=== PATIENT | male | born 1980 | race Caucasian/White ===

== ENCOUNTER 2019-02-15 13:44 | Emergency (ER) | payer SELFPAY ==
[2019-02-15] MEDS ORDERED: NORMAL SALINE 1000 ML 1,000 ML IV ONE (15:40)
[2019-02-15] MEDS ORDERED: ACETAMINOPHEN 325 MG TABLET PO ONE (15:40)
--- NOTE | 2019-02-15 15:42 | ER Document Report ---
ED Medical Screen (RME) - General Chief Complaint: Headache Stated Complaint: DIZZY,HEADACHE,SORE THROAT Time Seen by Provider: 02/15/19 15:31 Mode of Arrival: Ambulatory TRAVEL OUTSIDE OF THE [place] IN LAST 30 DAYS: No - HPI Patient complains to provider of: H/A, DIZZINESS Notes: 02/15/19 15:41 Patient here with complaints of headache and dizziness. The patient states that he works outside. He was working in a [employer] shirt yesterday. States that he feels very dehydrated complains of having a headache, generalized muscle ache and joint aches as well as feeling generally dizzy. He thinks he may have passed out this morning. No chest pain or shortness of breath. No recent long trips or surgeries, leg swelling, cancer, history of DVT or PE. Exam No distress, nontoxic-appearing. Mild tachycardia. Lungs clear and equal throughout. Nonfocal neuro exam. Plan CBC, CMP, CPK, troponin, EKG, chest x-ray, saline lock, Tylenol, normal saline bolus. An initial examination was made on the patient as part of the triage process, and it was determined a more comprehensive evaluation was necessary. Initial labs were ordered and patient was transferred to another provider in the ED who assumed care and finished evaluation and plan. - Related Data Allergies/Adverse Reactions: No Known Allergies Allergy (Verified 02/15/19 13:45) Past Medical History Renal/ Medical History: Denies: Hx Peritoneal Dialysis GI Medical History: Reports: Hx Gastroesophageal Reflux Disease Psychiatric Medical History: Reports: Hx Anxiety Past Surgical History: Reports: Hx Appendectomy - Immunizations Hx Diphtheria, Pertussis, Tetanus Vaccination: No Physical Exam - Vital signs Vitals: Temp Pulse BP Pulse Ox 99.5 F 108 H 98/50 L 95 02/15/19 14:01 02/15/19 14:01 02/15/19 14:01 02/15/19 14:01 Course - Vital Signs Vital signs: Temp Pulse Resp BP Pulse Ox 99.5 F 108 H 98/50 L 95 02/15/19 14:01 02/15/19 14:01 02/15/19 14:01 02/15/19 14:01
--- NOTE | 2019-02-15 17:13 | RADIOLOGY REPORT (SQ) ---
EXAM DESCRIPTION: CHEST SINGLE VIEW COMPLETED DATE/TIME: 02/15/2019 5:06 pm REASON FOR STUDY: DIZZINESS COMPARISON: 10/22/2015 EXAM PARAMETERS: NUMBER OF VIEWS: One view. TECHNIQUE: Single frontal radiographic view of the chest acquired. RADIATION DOSE: NA LIMITATIONS: None. FINDINGS: LUNGS AND PLEURA: No opacities, masses or pneumothorax. No pleural effusion. MEDIASTINUM AND HILAR STRUCTURES: No masses. Contour normal. HEART AND VASCULAR STRUCTURES: Heart normal in size. Normal vasculature. BONES: No acute findings. HARDWARE: None in the chest. OTHER: No other significant finding. IMPRESSION: NO ACUTE RADIOGRAPHIC FINDING IN THE CHEST. TECHNICAL DOCUMENTATION: JOB ID: [id number] [employer]- All Rights Reserved Reading location - IP/workstation name: [email or web address]
[2019-02-15 17:20] LABS: ABSOLUTE BASOPHILS # (AUTO) 0.1 10^3/uL (0.0-0.2); ABSOLUTE LYMPHOCYTES (AUTO) 1.3 10^3/uL (0.5-4.7); ABSOLUTE NEUT (AUTO) 16.4 10^3/uL (1.7-8.2); BASOPHILS % (AUTO) 0.3 % (0-2); EOSINOPHILS % (AUTO) 0.2 % (0-6); HEMATOCRIT 44.4 % (37.9-51.0); HEMOGLOBIN 15.1 g/dL (13.5-17.0); MEAN CORPUSCULAR HEMOGLOBIN 31.4 pg (27.0-33.4); MEAN CORPUSCULAR HGB CONC 34.1 g/dL (32.0-36.0); MEAN CORPUSCULAR VOLUME 92 fl (80-97); MONOCYTES % (AUTO) 5.2 % (3-13); PLATELET COUNT 319 10^3/uL (150-450); RED BLOOD COUNT 4.82 10^6/uL (4.35-5.55); RED CELL DISTRIBUTION WIDTH 13.2 % (11.5-14.0); SEGMENTED NEUTROPHILS % (AUTO) 87.3 % (42-78); TOTAL CELLS COUNTED % (AUTO) 100 %; WHITE BLOOD COUNT 18.8 10^3/uL (4.0-10.5)
[2019-02-15 17:39] LABS: ALANINE AMINOTRANSFERASE 25 U/L (21-72); ALBUMIN 4.1 g/dL (3.5-5.0); ALKALINE PHOSPHATASE 116 U/L (38-126); ANION GAP 13 (5-19); ASPARTATE AMINO TRANSFERASE 20 U/L (17-59); BILIRUBIN,DIRECT 0.3 mg/dL (0.0-0.4); BILIRUBIN,TOTAL 0.8 mg/dL (0.2-1.3); BLOOD UREA NITROGEN 10 mg/dL (7-20); CALCIUM 9.4 mg/dL (8.4-10.2); CARBON DIOXIDE 25 mmol/L (22-30); CHLORIDE 100 mmol/L (98-107); CREATINE KINASE 53 U/L (55-170); GLUCOSE 98 mg/dL (75-110); POTASSIUM 4.1 mmol/L (3.6-5.0); SODIUM 137.6 mmol/L (137-145); TOTAL PROTEIN 7.4 g/dL (6.3-8.2)
[2019-02-15] MEDS ORDERED: KETOROLAC TROMETHAMINE INJ/PF 30 MG/1 ML SDV IV ONE (20:28)
--- NOTE | 2019-02-15 20:39 | ER Document Report ---
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 Patient states suddenly he became very hot, began sweating and felt like he was going to pass out. Patient states that he began feeling pain in his throat today. He denies any fever, difficulty swallowing, ear pain, chest pain, shortness of breath, abdominal pain. Patient does smoke and drink. TRAVEL OUTSIDE OF THE [place] IN LAST 30 DAYS: No - HPI Onset: This morning Onset/Duration: Gradual, Better Quality of pain: Achy Severity: Mild Pain Level: 1 Associated symptoms: Body/muscle aches, Chills, Nonproductive cough - Chronic, Headache - Resolved, Nausea, Sore throat, Other - Dizziness-resolved. denies: Chest pain, Diarrhea, Fever, Vomiting, Shortness of breath Exacerbated by: Denies Relieved by: Denies Similar symptoms previously: No Recently seen / treated by doctor: No - Related Data Allergies/Adverse Reactions: No Known Allergies Allergy (Verified 02/15/19 13:45) Past Medical History - General Information source: Patient - Social History Smoking Status: Current Every Day Smoker Cigarette use (# per day): Yes - 15 Smoking Education Provided: Yes - Smoking cessation counseling was provided for 4 minutes at the bedside Frequency of alcohol use: Occasional Drug Abuse: None Lives with: Spouse/Significant other Family History: Reviewed & Not Pertinent Patient has suicidal ideation: No Patient has homicidal ideation: No - Medical History Medical History: Negative Renal/ Medical History: Denies: Hx Peritoneal Dialysis GI Medical History: Reports: Hx Gastroesophageal Reflux Disease Psychiatric Medical History: Reports: Hx Anxiety Past Surgical History: Reports: Hx Appendectomy - Immunizations Hx Diphtheria, Pertussis, Tetanus Vaccination: No Review of Systems - Review of Systems Notes: REVIEW OF SYSTEMS: CONSTITUTIONAL : Denies fever, chills, or sweats. Denies recent illness. Denies weight loss, recent hospitalizations. EENT: Denies visual changes, eye pain. Denies oral lesions, difficulty swallowing. CARDIOVASCULAR: Denies chest pain. Denies palpitations. Denies lower extremity edema. RESPIRATORY: Denies cough. Denies shortness of breath, wheezing. GASTROINTESTINAL: Denies abdominal pain or distention. Denies vomiting, or diarrhea. Denies blood in vomitus, stools, or per rectum. Denies black, tarry stools. Denies constipation. GENITOURINARY: Denies difficulty urinating, painful urination, frequency, blood in urine, testicular pain or penile discharge. MUSCULOSKELETAL: Denies back or neck pain or stiffness. Denies joint pain or swelling. SKIN: Denies rash, lesions or sores. HEMATOLOGIC : Denies easy bruising or bleeding. LYMPHATIC: Denies swollen glands. NEUROLOGICAL: Denies confusion or altered mental status. Denies loss of consciousness. Denies weakness or paralysis. Denies problems difficulty with ambulation, slurred speech. Denies sensory loss, numbness, or tingling. Denies seizures. PSYCHIATRIC: Denies anxiety or stress. Denies depression, suicidal ideation, or Physical Exam - Vital signs Vitals: Temp Pulse BP Pulse Ox 99.5 F 108 H 98/50 L 95 02/15/19 14:01 02/15/19 14:01 02/15/19 14:01 02/15/19 14:01 - Notes Notes: PHYSICAL EXAMINATION: GENERAL: Well-appearing, well-nourished and in no acute distress. HEAD: Atraumatic, normocephalic. EYES: Pupils equal round and reactive to light, extraocular movements intact, sclera anicteric, conjunctiva are normal. ENT: Nares patent, oropharynx erythematous, 2+ tonsillar swelling, no exudates. Moist mucous membranes. NECK: Normal range of motion, supple without lymphadenopathy LUNGS: Breath sounds clear to auscultation bilaterally and equal. No wheezes rales or rhonchi. HEART: Regular rate and rhythm without murmurs ABDOMEN: Soft, nontender, nondistended abdomen. No guarding, no rebound. No masses appreciated. Musculoskeletal: Normal range of motion, no pitting or edema. No cyanosis. NEUROLOGICAL: Cranial nerves grossly intact. Normal speech, normal gait. Normal sensory, motor exams PSYCH: Normal mood, normal affect. SKIN: Warm, Dry, normal turgor, no rashes or lesions noted. Course - Re-evaluation Re-evalutation: 02/16/19 02:19 Laboratory 02/15/19 02/15/19 02/15/19 16:50 16:50 16:50 WBC 18.8 H RBC 4.82 Hgb 15.1 Hct 44.4 MCV 92 MCH 31.4 MCHC 34.1 RDW 13.2 Plt Count 319 Seg Neutrophils % 87.3 H Lymphocytes % 7.0 L Monocytes % 5.2 Eosinophils % 0.2 Basophils % 0.3 Absolute Neutrophils 16.4 H Absolute Lymphocytes 1.3 Absolute Monocytes 1.0 Absolute Eosinophils 0.0 Absolute Basophils 0.1 Sodium 137.6 Potassium 4.1 Chloride 100 Carbon Dioxide 25 Anion Gap 13 BUN 10 Creatinine 0.68 Est GFR ( Amer) > 60 Est GFR (Non-Af Amer) > 60 Glucose 98 Calcium 9.4 Total Bilirubin 0.8 Direct Bilirubin 0.3 Neonat Total Bilirubin Not Reportable Neonat Direct Bilirubin Not Reportable Neonat Indirect Bili Not Reportable AST 20 ALT 25 Alkaline Phosphatase 116 Creatine Kinase 53 L Troponin I < 0.012 Total Protein 7.4 Albumin 4.1 Monotest Group A Strep Rapid 02/15/19 02/15/19 21:15 21:15 WBC RBC Hgb Hct MCV MCH MCHC RDW Plt Count Seg Neutrophils % Lymphocytes % Monocytes % Eosinophils % Basophils % Absolute Neutrophils Absolute Lymphocytes Absolute Monocytes Absolute Eosinophils Absolute Basophils Sodium Potassium Chloride Carbon Dioxide Anion Gap BUN Creatinine Est GFR ( Amer) Est GFR (Non-Af Amer) Glucose Calcium Total Bilirubin Direct Bilirubin Neonat Total Bilirubin Neonat Direct Bilirubin Neonat Indirect Bili AST ALT Alkaline Phosphatase Creatine Kinase Troponin I Total Protein Albumin Monotest NEGATIVE Group A Strep Rapid POSITIVE Chest X-Ray 02/15/19 15:42 IMPRESSION: NO ACUTE RADIOGRAPHIC FINDING IN THE CHEST. 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 Patient states suddenly he became very hot, began sweating and felt like he was going to pass out. Patient states that he began feeling pain in his throat today. Patient was placed on traffic monitor specialist and EKG was obtained which showed the patient to be in normal sinus rhythm. CBC does show a leukocytosis without anemia. CMP is without electrolyte abnormalities. Troponin within normal limits. Group A strep positive. Patient received IV fluids, Zofran, pen G IM. Patient reports resolution of his nausea, headache and dizziness. Patient was evaluated and treated as appropriate for the patient's presenting symptoms and complaint, with consideration of any critical or life threatening conditions that may be associated with their obtained history and exam as noted above. All results were discussed with patient. Patient provided the opportunity to ask questions, and express concerns. Patient was educated on treatments based on their presumed diagnosis as noted above. At this time we will discharge the patient with return precautions and follow-up recommendations. Verbal discharge instructions given a the bedside. Medication warnings reviewed. Patient is in agreement with this plan and has verbalized understanding of return precautions. After careful consideration I feel that that patient can be safely discharged from the emergency department, they were advised to followup with a primary care physician in 2-3 days. Dictation on this chart was performed using voice recognition software and may result in unintended grammatical, spelling, syntax or errors. - Vital Signs Vital signs: Temp Pulse Resp BP Pulse Ox 98.6 F 92 20 100/60 95 02/15/19 22:00 02/15/19 18:48 02/15/19 22:01 02/15/19 22:01 02/15/19 22:01 - Laboratory Result Diagrams: 02/15/19 16:50 02/15/19 16:50 Laboratory results interpreted by me: 02/15/19 02/15/19 16:50 16:50 WBC 18.8 H Seg Neutrophils % 87.3 H Lymphocytes % 7.0 L Absolute Neutrophils 16.4 H Creatine Kinase 53 L - Diagnostic Test Radiology reviewed: Image reviewed, Reports reviewed - EKG Interpretation by Nc EKG shows normal: Sinus rhythm Rate: Normal Rhythm: NSR Discharge - Discharge Clinical Impression: Strep pharyngitis, Dizziness Headache Qualifiers: Headache type: unspecified Headache chronicity pattern: unspecified pattern Intractability: not intractable Qualified Code(s): R51 - Headache Condition: Good Disposition: HOME, SELF-CARE Instructions: Dizziness ([facility]), Headache ([facility]), Strep Throat ([facility]) Additional Instructions: Follow up with your [id number] hours for further care or return to the ED IMMEDIATELY if symptoms worsen or you have any concerns. If you cannot afford to follow up with your primary care physician a list of low cost clinics have been provided at the end of your discharge papers as well. Most prescribed medications have multiple side effects. The safest thing to do is when filling your prescription speak to your pharmacist regarding possible interactions with your normal home medications and over the counter medications such as Ibuprofen, Tylenol, Benadryl. If you experience any symptoms that cause you discomfort or concern you should discontinue the medication immediately and return to the emergency room or call your primary care physician. Prescriptions: Ibuprofen [Motrin 600 Mg Tablet] 600 mg PO TID #15 tablet Ondansetron [Zofran Odt 4 mg Tablet] 1 - 2 tab PO Q4H PRN #15 tab.rapdis PRN Reason: For Nausea/Vomiting
[2019-02-15] MEDS ORDERED: PENICILLIN G BENZATHINE 1.2 MILLION UNIT/2 ML DISP.SYRIN IM ONE (21:45)
[2019-02-15 22:20] VITALS: BP 100/60
--- NOTE | 2019-02-15 23:41 | EKG REPORT ---
SEVERITY:- NORMAL ECG - SINUS RHYTHM : Confirmed by: Fabio Ramos 15-Feb-2019 23:41:00
== END 2019-02-15 22:30 | disposition home or self-care (01) ==
LOC: ER 13:44
DX: J02.0 Streptococcal pharyngitis (principal); R42 Dizziness and giddiness; R51 Headache; J02.9 Acute pharyngitis, unspecified; M79.10 Myalgia, unspecified site; R05 Cough; F17.210 Nicotine dependence, cigarettes, uncomplicated
CPT/HCPCS: 93005; 99406; 99284; 96372; 96361; 96374; 36415; 87880; 82550; 85025; 86308; 80053; 84484; 71045; 93010; J1885; J0561; J7030

== ENCOUNTER 2020-08-01 14:48 | Emergency (ER) | payer SELFPAY ==
--- NOTE | 2020-08-01 16:10 | ER Document Report ---
ED Medical Screen (RME) - General Chief Complaint: Chest Pain Stated Complaint: CHEST PAIN, LEG NUMBNESS Time Seen by Provider: 08/01/20 16:03 Mode of Arrival: Wheelchair Information source: Patient Notes: 40-year-old man presented to ED for complaint of chest pain since 10 AM. He states the pain was so bad he had to lay down on the concrete at work and then when he to get up he cannot feel his legs and had to be helped up from the ground. He states his friend did bring him in and he was able to walk to the truck with a lot of assistance. He states his legs still feel numb. He states his pain is still stabbing. He states he does smoke 15 cigarettes a day. He states he does not have any past medical history. His blood pressure is low for what he states is his normal and his pulse is tachycardic. I did consult Dr. Abarca. She agreed patient needed CTA right away. Labs and CTA have been ordered. I have greeted and performed a rapid initial assessment of this patient. A comprehensive ED assessment and evaluation of the patient, analysis of test results and completion of medical decision making process will be conducted by an additional ED providers. TRAVEL OUTSIDE OF THE [place] IN LAST 30 DAYS: No - Related Data Allergies/Adverse Reactions: No Known Allergies Allergy (Verified 08/01/20 16:02) Past Medical History - General Information source: Patient - Social History Cigarette use (# per day): Yes - 15 cigarettes a day Frequency of alcohol use: None Drug Abuse: None Lives with: Alone Family history: Reviewed & Not Pertinent - Medical History Medical History: Negative - Past Medical History Cardiac Medical History: Reports: None Pulmonary Medical History: Reports: None EENT Medical History: Reports: None Neurological Medical History: Reports: None Endocrine Medical History: Reports: None Renal/ Medical History: Reports: None Malignancy Medical History: Reports None GI Medical History: Reports: Hx Gastroesophageal Reflux Disease Musculoskeltal Medical History: Reports None Skin Medical History: Reports None Psychiatric Medical History: Reports: Hx Anxiety Traumatic Medical History: Reports: None Infectious Medical History: Reports: None Past Surgical History: Reports: Hx Appendectomy - Immunizations Hx Diphtheria, Pertussis, Tetanus Vaccination: No Physical Exam - Vital signs Vitals: Temp Pulse Resp BP Pulse Ox 97.1 F 100 20 106/55 L 97 08/01/20 15:03 08/01/20 15:03 08/01/20 15:03 08/01/20 15:03 08/01/20 15:03 Course - Vital Signs Vital signs: Temp Pulse Resp BP Pulse Ox 97.1 F 100 20 106/55 L 97 08/01/20 15:03 08/01/20 15:03 08/01/20 15:03 08/01/20 15:03 08/01/20 15:03
[2020-08-01 16:34] LABS: ABSOLUTE LYMPHOCYTES (AUTO) 1.1 10^3/uL (0.5-4.7); ABSOLUTE MONOCYTES (AUTO) 0.6 10^3/uL (0.1-1.4); ABSOLUTE NEUT (AUTO) 6.6 10^3/uL (1.7-8.2); BASOPHILS % (AUTO) 0.5 % (0-2); EOSINOPHILS % (AUTO) 0.5 % (0-6); HEMATOCRIT 43.4 % (37.9-51.0); HEMOGLOBIN 15.6 g/dL (13.5-17.0); LYMPHOCYTES % (AUTO) 13.6 % (13-45); MEAN CORPUSCULAR HEMOGLOBIN 32.8 pg (27.0-33.4); MEAN CORPUSCULAR HGB CONC 35.8 g/dL (32.0-36.0); MEAN CORPUSCULAR VOLUME 92 fl (80-97); MONOCYTES % (AUTO) 6.8 % (3-13); PLATELET COUNT 291 10^3/uL (150-450); RED BLOOD COUNT 4.75 10^6/uL (4.35-5.55); RED CELL DISTRIBUTION WIDTH 13.2 % (11.5-14.0); SEGMENTED NEUTROPHILS % (AUTO) 78.6 % (42-78); TOTAL CELLS COUNTED % (AUTO) 100 %; WHITE BLOOD COUNT 8.4 10^3/uL (4.0-10.5)
--- NOTE | 2020-08-01 16:54 | RADIOLOGY REPORT (SQ) ---
EXAM DESCRIPTION: CTA CHEST IMAGES COMPLETED DATE/TIME: 08/01/2020 4:33 pm REASON FOR STUDY: chest pain numbness to both legs COMPARISON: 10/22/2015 TECHNIQUE: CT scan of the chest performed using helical scanning technique with dynamic intravenous contrast injection. Images reviewed with lung, soft tissue and bone windows. Reconstructed coronal and sagittal MPR images reviewed. Additional 3 dimensional post-processing performed to develop Maximal Intensity Projection images (VT P). All images stored on PACS. All CT scanners at this facility use dose modulation, iterative reconstruction, and/or weight based d osing when appropriate to reduce radiation dose to as low as reasonably achievable (ALARA). [facility]: Dose Right [facility]: CareDose [facility]: Dose Right [facility]: Teradose 4D [facility]: Funzio CONTRAST TYPE AND DOSE: contrast/concentration: Isovue 350.00 mmol/ml; Total Contrast Delivered: 57. 0 ml; Total Saline Delivered: 52.7 ml Contrast bolus not optimized for the pulmonary arteries. RENAL FUNCTION: None required. The patient is less than 50 years old. RADIATION DOSE: CT Rad equipment meets quality standard of care and radiation dose reduction techniq ues were employed. CTDIvol: 14.4 - 19.8 mGy. DLP: 569 mGy-cm. . LIMITATIONS: None. FINDINGS: LUNGS AND PLEURA: No masses, infiltrates, or pneumothorax. No pleural effusions or pleura l calcifications. AORTA AND GREAT VESSELS: No aneurysm. No dissection. HEART: No pericardial effusion. No significant coronary artery calcifications. PULMONARY ARTERIES: Pulmonary arteries are poorly opacified. No obvious central pulmonary emboli. HILAR AND MEDIASTINAL STRUCTURES: No identified masses or abnormal nodes. HARDWARE: None in the chest. UPPER ABDOMEN: No significant findings. Limited exam. THYROID AND OTHER SOFT TISSUES: No masses. No adenopathy. BONES: No acute or significant finding. 3D MIPS: Confirm above findings. OTHER: No other significant finding. IMPRESSION: There is no aortic aneurysm or dissection. No acute findings in the thorax. COMMENT: Quality ID # [id number]: Final reports with documentation of one or more dose reduction techniques (e.g., Automated exposure control, adjustment of the mA and/or kV according to patient size, use of iterative reconstruction technique) TECHNICAL DOCUMENTATION: JOB ID: [id number] [employer]- All Rights Reserved Reading location - IP/workstation name: [email or web address]
[2020-08-01 17:01] LABS: ALBUMIN 4.3 g/dL (3.5-5.0); ALKALINE PHOSPHATASE 109 U/L (38-126); ANION GAP 11 (5-19); ASPARTATE AMINO TRANSFERASE 28 U/L (17-59); BILIRUBIN,DIRECT 0.1 mg/dL (0.0-0.4); BILIRUBIN,TOTAL 0.6 mg/dL (0.2-1.3); BLOOD UREA NITROGEN 10 mg/dL (7-20); CALCIUM 9.2 mg/dL (8.4-10.2); CARBON DIOXIDE 22 mmol/L (22-30); CHLORIDE 99 mmol/L (98-107); CREATINE KINASE 116 U/L (55-170); GLUCOSE 97 mg/dL (75-110); POTASSIUM 3.8 mmol/L (3.6-5.0); TOTAL PROTEIN 7.5 g/dL (6.3-8.2)
[2020-08-01] MEDS ORDERED: KETOROLAC TROMETHAMINE INJ/PF 30 MG/1 ML SDV IV ONE (20:42)
[2020-08-01] MEDS ORDERED: NORMAL SALINE 1000 ML 1,000 ML IV ONE (20:42)
--- NOTE | 2020-08-01 20:48 | ER Document Report ---
ED General - General Chief Complaint: Chest Pain Stated Complaint: CHEST PAIN, LEG NUMBNESS Time Seen by Provider: 08/01/20 16:03 Mode of Arrival: Wheelchair TRAVEL OUTSIDE OF THE [place] IN LAST 30 DAYS: No - HPI Notes: Patient is a 40-year-old male who presents to emergency department for evaluation of chest pain with radiation into his neck and back. He states he woke up this morning he felt very hot all over, possibly fevered. He states he took his temperature and he had no fever. He went to work. He had intermittent chills. He started having chest pain that he describes a sharp and stabbing. It is in his center chest, radiates occasionally into his back and into his neck. He states that his legs "felt numb." He lay down flat because his pain was so severe. He just feels weak all over. He states that his legs do not feel exactly numb right now, but they just "do not feel right." He has had some recent diarrhea. - Related Data Allergies/Adverse Reactions: No Known Allergies Allergy (Verified 08/01/20 16:02) Past Medical History - General Information source: Patient - Social History Smoking Status: Current Every Day Smoker Cigarette use (# per day): Yes - 15 cigarettes a day Chew tobacco use (# tins/day): No Frequency of alcohol use: None Drug Abuse: None Lives with: Alone Family History: Reviewed & Not Pertinent - Medical History Medical History: Negative - Past Medical History Cardiac Medical History: Reports: None Pulmonary Medical History: Reports: None EENT Medical History: Reports: None Neurological Medical History: Reports: None Endocrine Medical History: Reports: None Renal/ Medical History: Reports: None Malignancy Medical History: Reports None GI Medical History: Reports: Hx Gastroesophageal Reflux Disease Musculoskeletal Medical History: Reports None Skin Medical History: Reports None Psychiatric Medical History: Reports: Hx Anxiety Traumatic Medical History: Reports: None Infectious Medical History: Reports: None Past Surgical History: Reports: Hx Appendectomy - Immunizations Hx Diphtheria, Pertussis, Tetanus Vaccination: No Review of Systems - Review of Systems Constitutional: See HPI EENT: No symptoms reported Cardiovascular: See HPI Respiratory: No symptoms reported Gastrointestinal: No symptoms reported Genitourinary: No symptoms reported Musculoskeletal: See HPI Skin: No symptoms reported Neurological/Psychological: See HPI Physical Exam - Vital signs Vitals: Temp Pulse Resp BP Pulse Ox 97.1 F 100 20 106/55 L 97 08/01/20 15:03 08/01/20 15:03 08/01/20 15:03 08/01/20 15:03 08/01/20 15:03 - Notes Notes: Vital signs reviewed, please refer to chart. Head is normocephalic, atraumatic. Pupils equal round, reactive to light. Neck is supple without meningismus. H eart is regular rate and rhythm. Lungs are clear to auscultation bilaterally. Chest wall is tender to palpation, tenderness radiates up into the anterior neck overlying the left sternocleidomastoid muscle, particularly in the areas of his pain. Abdomen is soft, nontender, normoactive bowel sounds throughout. Extremities without cyanosis, clubbing. Posterior calves are nontender. Peripheral pulses are equal. Skin is warm and dry. Patient is awake, alert, oriented x3. Cranial nerves II - XII are grossly intact without focal neurological deficits. Strength is plus 5 out of 5 bilateral upper and lower extremities. Sensation is intact. Reflexes symmetrical. Intact [id number], rapid alternating movements, [id number]. Course - Re-evaluation Re-evalutation: 08/01/20 20:46 Patient presents to the emergency department for evaluation. Laboratory investigations were ordered as per the nurse practitioner. I was concerned about the possibility of an aortic dissection in this patient who had chest pain with radiation as well as neurological symptoms below the diaphragm. CT angiogram found no signs of dissection or aneurysm. Repeat troponin is pending, initial troponin was unremarkable. Given his hot and cold symptoms, his diarrhea, I am inclined to test for Covid, this is ordered. Patient is curren tly stable. I am giving him IV fluids and Toradol. We will continue to monitor. 08/01/20 23:22 Covid test is still pending. Patient's repeat troponin is undetectable. A CT angiogram fails to show any signs of anything concerning. He continues to complain of pain, but he has been sleeping the entire time he has been here. I will write him a prescription for anti-inflammatories, he is given a small dose of Flexeril here. He is to rest, stay well-hydrated. He will be treated as a PUI with chest wall pain. He is to return to the ED with worsening or new concerning symptoms of any sort. - Vital Signs Vital signs: Temp Pulse Resp BP Pulse Ox 98.5 F 88 18 108/54 L 94 08/01/20 23:30 08/01/20 23:30 08/01/20 23:30 08/01/20 23:30 08/01/20 23:30 - Laboratory Result Diagrams: 08/01/20 16:21 08/01/20 16:21 Laboratory results interpreted by me: 08/01/20 08/01/20 16:21 16:21 Seg Neutrophils % 78.6 H Sodium 132.1 L - Diagnostic Test Radiology reviewed: Reports reviewed Radiology results interpreted by me: 08/01/20 20:47 Chest/Abdomen CTA 08/01/20 16:11 IMPRESSION: There is no aortic aneurysm or dissection. No acute findings in the thorax. - EKG Interpretation by Me Additional EKG results interpreted by me: 08/01/20 20:47 Sinus tachycardia with rate of 105 bpm. Normal axis and intervals. No acute ST changes concerning for ischemia or infarction. No old studies immediately available for comparison. Discharge - Discharge Clinical Impression: Person under investigation for COVID-19 Chest pain Qualifiers: Chest pain type: unspecified Qualified Code(s): R07.9 - Chest pain, unspecified Disposition: HOME, SELF-CARE Instructions: COVID-19 Guidance for Persons Under Investigation, Chest Wall Pain ([facility]), Chest Pain of Unclear Cause ([facility]) Additional Instructions: No clear cause was found for your pain today. Your labs were unremarkable. Your CT of your chest failed to show any signs of significant abnormality. I have tested you for COVID-19. Please quarantine at home, you will be contacted if results are positive. Otherwise, rest, stay well hydrated. Naprosyn with food as needed for pain, Flexeril as needed for more severe pain. Return the emergency department if you develop worsening or new concerning symptoms of any sort. Prescriptions: Cyclobenzaprine HCl [Flexeril 10 mg Tablet] 10 mg PO BIDP PRN #10 tablet PRN Reason: For Pain Scale 4-5 Naproxen [Naprosyn] 500 mg PO BID #20 tablet
[2020-08-01] MEDS ORDERED: CYCLOBENZAPRINE HCL 10 MG TABLET PO ONE (23:17)
[2020-08-01 23:31] VITALS: BP 108/54
--- NOTE | 2020-08-02 09:47 | EKG REPORT ---
SEVERITY:- OTHERWISE NORMAL ECG - SINUS TACHYCARDIA : Confirmed by: Krystian Quiñones MD 02-Aug-2020 09:46:13
== END 2020-08-01 23:48 | disposition home or self-care (01) ==
LOC: ER 14:48
DX: R07.9 Chest pain, unspecified (principal); R20.0 Anesthesia of skin; F17.210 Nicotine dependence, cigarettes, uncomplicated; Z20.828 Contact with and (suspected) exposure to other viral communicable diseases
CPT/HCPCS: 93005; 99285; 96361; 96374; 36415; 82550; 85025; 87635; 80053; 84484; 71275; 93010; J1885; J7030; C9803